=== PATIENT | female | born 1990 | race Caucasian/White ===

== ENCOUNTER → 2020-08-21 | Outpatient (CLI) | payer SELFPAY | LOC: M LABSMTC 13:39 | PROVIDERS: ATTEND Pediatrics | DX: Z20.828 Contact with and (suspected) exposure to other viral communicable diseases (principal) ==

== ENCOUNTER → 2020-09-05 | Outpatient (CLI) | payer SELFPAY | LOC: M LABSMTC 10:54 | PROVIDERS: ATTEND Pediatrics | DX: Z20.828 Contact with and (suspected) exposure to other viral communicable diseases (principal) ==

== ENCOUNTER → 2020-09-19 | Outpatient (CLI) | payer SELFPAY | LOC: M LABSMTC 11:42 | PROVIDERS: ATTEND Pediatrics | DX: Z20.822 Contact with and (suspected) exposure to COVID-19 (principal) ==

== ENCOUNTER → 2020-10-04 | Outpatient (CLI) | payer SELFPAY | LOC: M LABSMTC 12:47 | PROVIDERS: ATTEND Pediatrics | DX: Z20.828 Contact with and (suspected) exposure to other viral communicable diseases (principal) ==

== ENCOUNTER → 2020-10-23 | Outpatient (CLI) | payer SELFPAY | LOC: M LABSMTC 12:18 | PROVIDERS: ATTEND Pediatrics | DX: Z20.822 Contact with and (suspected) exposure to COVID-19 (principal) ==

== ENCOUNTER → 2020-11-08 | Outpatient (CLI) | payer SELFPAY | LOC: M LABSMTC 14:16 | PROVIDERS: ATTEND Pediatrics | DX: Z20.822 Contact with and (suspected) exposure to COVID-19 (principal) ==

== ENCOUNTER → 2020-12-03 | Outpatient (CLI) | payer SELFPAY | LOC: M LABSMTC 10:35 | PROVIDERS: ATTEND Pediatrics | DX: Z11.52 Encounter for screening for COVID-19 (principal) ==

== ENCOUNTER → 2020-12-06 | Outpatient (REF) | payer OTHER | LOC: M SFHCPLAZ 19:06 | PROVIDERS: ATTEND Family Medicine | DX: Z12.4 Encounter for screening for malignant neoplasm of cervix (principal) ==

== ENCOUNTER → 2023-12-02 | Outpatient (REF) | payer OTHER | LOC: M SFHCPLAZ 18:09 | PROVIDERS: ATTEND Family Medicine | DX: D48.5 Neoplasm of uncertain behavior of skin (principal) ==

== ENCOUNTER → 2024-08-23 | Outpatient (CLI) | payer OTHER ==
[2024-08-24 12:22] LABS: MUMPS VIRUS IgG ANTIBODY 67.2 AU/mL (>10.99)
== END ==
LOC: M PLALAB 10:44
PROVIDERS: ATTEND Family Medicine
DX: Z01.84 Encounter for antibody response examination (principal)